=== PATIENT | female | born 1950 | race Caucasian/White ===

== ENCOUNTER 2022-11-11 13:14 | Outpatient (CLI) | payer MEDICARE | END 2022-11-11 13:15 | disposition home or self-care (01) | LOC: CSHMAMMO 13:14 | PROVIDERS: ATTEND Student in an Organized Health Care Education/Training Program | DX: R92.8 Other abnormal and inconclusive findings on diagnostic imaging of breast (principal) | CPT/HCPCS: 76642; 77065; G0279 ==

== ENCOUNTER 2022-11-21 11:20 | Outpatient (CLI) | payer MEDICARE | END 2022-11-21 11:21 | disposition home or self-care (01) | LOC: CSHMAMMO 11:20 | PROVIDERS: ATTEND Internal Medicine | DX: M81.0 Age-related osteoporosis without current pathological fracture (principal) | CPT/HCPCS: 77080 ==

== ENCOUNTER 2024-03-02 12:24 | Outpatient (CLI) | payer MEDICARE | END 2024-03-02 12:25 | disposition home or self-care (01) | LOC: CSHRAD 12:24 | PROVIDERS: ATTEND Internal Medicine | DX: R49.0 Dysphonia (principal); R09.82 Postnasal drip; K21.9 Gastro-esophageal reflux disease without esophagitis; K44.9 Diaphragmatic hernia without obstruction or gangrene | CPT/HCPCS: 74220 ==